=== PATIENT | female | born 1985 | race Caucasian/White ===

== ENCOUNTER 2017-02-21 20:22 | Emergency (ER) | payer BC, OTHER ==
--- NOTE | 2017-02-21 20:49 | EDM.PDOC ---
ED HPI GENERAL MEDICAL PROBLEM - General Chief Complaint: ENT Problem Stated Complaint: SINUS INFECTION Time Seen by Provider: 02/21/17 20:38 - History of Present Illness INITIAL COMMENTS - FREE TEXT/NARRATIVE: HISTORY AND PHYSICAL: History of present illness: The patient is a 31-year-old female with no significant past medical history and no social history and presents with 5 days of frontal headache sinus congestion and pressure scratch she throat sore throat and postnasal drip. Patient says she has had a dry hacking cough but it is usually triggered by the nasal drip. She has no chest pain shortness of breath abdominal pain vomiting or diarrhea. She has no ear pain neck pain or back pain. Patient denies and has only taken etxk-ezh-msvyfig Claritin once or twice. She has had a low-grade fever but it has not been persistent. She's eating and drinking normally. Review of systems: As per history of present illness and below otherwise all systems reviewed and negative. Past medical history: As per history of present illness and as reviewed below otherwise noncontributory. Surgical history: As per history of present illness and as reviewed below otherwise noncontributory. Social history: No reported history of drug or alcohol abuse. Family history: As per history of present illness and as reviewed below otherwise noncontributory. Physical exam: Gen.: Well-developed well-nourished overweight female who speaks clearly in the ED; he has nasal quality to her voice and is not breathless. Vital signs have been reviewed by me. HEENT: Atraumatic, normocephalic, pupils reactive, negative for conjunctival pallor or scleral icterus, mucous membranes moist, throat clear, neck supple, nontender, trachea midline. There is no cervical adenopathy or nuchal rigidity and no focal sinus tenderness on palpation. The turbinates are boggy bilaterally with clear nasal drainage. Lungs: Clear to auscultation, breath sounds equal bilaterally, chest nontender. Heart: S1S2, regular rate and rhythm no overt murmurs Abdomen: Soft, nondistended, nontender. NABS Genitourinary: Deferred. Rectal: Deferred. Extremities: Atraumatic, negative for cords or calf pain. Neurovascular unremarkable. Neuro: Awake, alert, oriented. Cranial nerves II through XII unremarkable. Cerebellum unremarkable. Motor and sensory unremarkable throughout. Exam nonfocal. Skin: No evidence of any overt rashes or lesions turgor is normal Diagnostics: [] Therapeutics: [] I discussed with the patient this may be allergenic or viral but in light of the fact that she has had 5 days of symptoms and is becoming more congested rather than improved I will recommend [id number]-[id number] Flonase Claritin and place her on antibiotic. I recommended hydration and follow-up in the clinic. She says she has a provider at [facility] and I recommend calling her for follow-up. I also advised dhyy-cra-kvzstxk Tylenol or Motrin for fevers Impression: Sinusitis Definitive disposition and diagnosis as appropriate pending reevaluation and review of above. Headache Pain Score (Numeric/FACES): 5 - Related Data Allergies Allergy/AdvReac Type Severity Reaction Status Date / Time No Known Allergies Allergy Verified 02/21/17 20:35 Home Meds: Home Meds Escitalopram Oxalate [Lexapro] 0 mg PO 02/21/17 [History] buPROPion [Wellbutrin] 0 mg PO DAILY 02/21/17 [History] Past Medical History Psychiatric History: Reports: Anxiety, Depression - Infectious Disease History Infectious Disease History: Reports: Chicken Pox - Past Surgical History HEENT Surgical History: Reports: Other (See Below) Other HEENT Surgeries/Procedures: cornea transplant Social & Family History - Family History Neurological: Reports: Seizure Endocrine/Metabolic: Reports: Diabetes, Type I - Tobacco Use Smoking Status *Q: Never Smoker Second Hand Smoke Exposure: No - Caffeine Use Caffeine Use: Reports: Coffee Caffeine Use Comment: 4 weekly - Recreational Drug Use Recreational Drug Use: No ED ROS GENERAL - Review of Systems Review Of Systems: ROS reveals no pertinent complaints other than HPI. ED EXAM, GENERAL - Physical Exam Exam: See Below (See dictation) Course - Vital Signs Last Recorded V/S: Last Vital Signs Temp 36.6 C 02/21/17 20:35 Pulse 88 02/21/17 20:35 Resp 18 02/21/17 20:35 BP 151/81 H 02/21/17 20:35 Pulse Ox 97 02/21/17 20:35 Departure - Departure Time of Disposition: 20:52 Disposition: Home, Self-Care 01 Condition: Good Clinical Impression: Sinusitis Qualifiers: Sinusitis location: unspecified location Chronicity: acute Recurrence: not specified as recurrent Qualified Code(s): J01.90 - Acute sinusitis, unspecified - Discharge Information Forms: ED Department Discharge Additional Instructions: The following information is given to patients seen in the emergency department who are being discharged to home. This information is to outline your options for follow-up care. We provide all patients seen in our emergency department with a follow-up referral. The need for follow-up, as well as the timing and circumstances, are variable depending upon the specifics of your emergency department visit. If you don't have a primary care physician on staff, we will provide you with a referral. We always advise you to contact your personal physician following an emergency department visit to inform them of the circumstance of the visit and for follow-up with them and/or the need for any referrals to a consulting specialist. The emergency department will also refer you to a specialist when appropriate. This referral assures that you have the opportunity for followup care with a specialist. All of these measure are taken in an effort to provide you with optimal care, which includes your followup. Under all circumstances we always encourage you to contact your private physician who remains a resource for coordinating your care. When calling for followup care, please make the office aware that this follow-up is from your recent emergency room visit. If for any reason you are refused follow-up, please contact the [facility] emergency department at and ask to speak to the emergency department charge nurse. [address] [place] [address] [facility] Primary care- Internal Medicine and Family [address] [address] Please push hydration and use qbze-pay-msqwtun Tylenol/ibuprofen for any fevers. Please purchase and use rhdo-hka-oaelsta Flonase as directed for the next 14 days as well as take szqc-fvv-acjxuqd Claritin or Petra for the next 14 days. Use antibiotics as directed until they are finished. Please call and follow-up with your provider at [facility] or one of our clinic doctors this week and return here as needed and as discussed
== END 2017-02-21 21:11 | disposition home or self-care (01) ==
LOC: MW.ED 20:22
CPT/HCPCS: 99282